=== PATIENT | male | born 1985 | race Caucasian/White ===

== ENCOUNTER → 2019-06-08 07:31 | Outpatient (CLI) | payer OTHER ==
[2016-07-27 06:20] VITALS: BMI 32.5
[~2019-06-08 07:31] MED LIST: BACTRIM DS TABL1 TAB PO; HYDROCODONE-APA1 TAB PO; IMODIUM 22 MG/10 ML PO; MYLANTA / MAALO30 ML PO; OMEPRAZOLE20 M1 PO; PROAIR HFA8.5 GM INH
[2019-06-08 08:27] LABS: BASOPHILS 0.5 % (0-2); EOSINOPHILS 4.9 % (0-7); HEMATOCRIT 43.8 % (42.0-54.0); HEMOGLOBIN 14.7 g/dL (13.5-17.5); IMMATURE GRANULOCYTES 0.3 % (0-5); LYMPHOCYTES 29.6 % (15-50); MCH 26.9 pg (26.0-34.0); MCHC 33.6 g/dL (31.0-37.0); MCV 80.1 fL (80.0-100.0); MONOCYTES 5.3 % (2-11); NEUTROPHILS 59.4 % (40-80); PLATELET COUNT 348 10x3/uL (130-400); RBC 5.47 10x6/uL (4.20-6.10); RDW 13.3 % (11.5-14.5); WBC 8.6 10x3/uL (4.8-10.8)
[2019-06-08 08:50] LABS: ALKALINE PHOSPHATASE 87 U/L (46-116); ALT (SGPT) 39 U/L (10-68); BILIRUBIN - TOTAL 0.42 mg/dL (0.2-1.3); CALC OSMOLALITY 279 mosm/kg (275-300); CALCIUM 9.3 mg/dL (8.5-10.1); CARBON DIOXIDE 28.4 mmol/L (21.0-32.0); CHLORIDE - SERUM 104 mmol/L (98-107); CREATININE - SERUM 1.1 mg/dL (0.6-1.3); GLUCOSE 90 mg/dL (74-106); POTASSIUM - SERUM 4.4 mmol/L (3.5-5.1); PROTEIN - SERUM 7.7 g/dL (6.4-8.2); SODIUM 141 mmol/L (136-145); UREA NITROGEN 11 mg/dL (7-18); eGFR NON AFRICAN AMERICAN 80 mL/min (90-120)
[2019-06-08 08:52] LABS: C-REACTIVE PROTEIN < 0.2 mg/dL (0.0-0.9)
== END | disposition home or self-care (01) ==
LOC: D.US 07:30
PROVIDERS: ATTEND Internal Medicine Gastroenterology
DX: R10.9 Unspecified abdominal pain (principal); R19.7 Diarrhea, unspecified; R11.0 Nausea